=== PATIENT | female | born 1960 | race Caucasian/White ===

== ENCOUNTER 2017-11-02 18:30 | Observation (INO) | payer BC ==
[2017-11-02 19:05] LABS: Absolute Lymphocytes (CBC) 1.7 K/uL (0.7-4.9); Absolute Monocytes 0.5 K/uL (0.1-1.3); Absolute Neutrophil 5.3 K/uL (1.8-8.0); Basophils % 0.5 % (0-1.3); Eosinophils % 1.8 % (0-4.4); Hematocrit 40.5 % (36.0-45.0); Lymphocytes % 22.4 % (15.3-44.8); MCV 95.9 fL (80-100); MPV 9.1 fL (7.6-11.3); Monocytes % 6.6 % (3.3-12.3); RBC Red Blood Cell Count 4.22 M/uL (3.86-4.86)
[2017-11-02 19:09] LABS: Protime INR 0.94
[2017-11-02] MEDS ORDERED: ONDANSETRON 4 MG/2 ML VIAL ONE (19:19)
[2017-11-02] MEDS ORDERED: MORPHINE 4 MG/ML SYR ONE (19:19)
[2017-11-02 19:25] LABS: ALT/SGPT 17 U/L (12-78); AST/SGOT 15 U/L (15-37); Albumin 3.5 g/dL (3.4-5.0); Alkaline Phosphatase 98 U/L (45-117); BUN Blood Urea Nitrogen 10 mg/dL (7-18); Bicarbonate 22 mmol/L (21-32); Bilirubin Direct 0.1 mg/dL (0-0.2); Bilirubin Total 0.5 mg/dL (0.2-1.0); CKMB Creatine Kinase MB < 1.0 ng/mL (0.3-3.6); Creatine Phosphokinase 48 U/L (26-192); Glucose Level 227 mg/dL (74-106); Lipase 147 U/L (73-393); Magnesium 1.7 mg/dL (1.8-2.4); NT PRO-BNP 419 pg/mL (<125); Potassium 3.9 mmol/L (3.5-5.1); Protein, Total 7.6 g/dL (6.4-8.2); Sodium Level 138 mmol/L (136-145)
[2017-11-02] MEDS ORDERED: MAGNESIUM SULFATE 1 gm IVPB 1 GM/100 ML BAG IV ONE (20:03)
--- NOTE | 2017-11-02 20:15 | RAD REPORT ---
EXAM DESCRIPTION: CT - Angio Aorta For Dissection - 11/02/2017 7:47 pm CLINICAL HISTORY: . Chest and abd pain COMPARISON: None TECHNIQUE: Computed tomography angiography of the chest, abdomen pelvis were obtained. 100 cc Isovue 370 was administered intravenously. Coronal and sagittal reconstruction were performed. MIP 3D reconstruction was performed All CT scans are performed using dose optimization technique as appropriate and may include automated exposure control or mA/KV adjustment according to patient size. FINDINGS: An aortic dissection is not seen. An aortic aneurysm is not displayed. Mild atherosclerot ic changes involve the aorta The celiac, SMA and LAISHA are patent . Mild ground-glass opacities are present within the lungs bilaterally. A pericardial effusion is not s een. A pleural effusion is not noted. The liver,spleen, pancreas adrenals and left kidney demonstrate no significant abnormality. A 6 millimeter calcification Hounsfield unit 1087 is present within the lower right pelvis probably within the distal right ureter. There is a possible right ureterocele. Right hydronephrosis is not pr esent. The kidneys demonstrate symmetric concentration of contrast The appendix is normal. There no evidence diverticulitis. No ascites is noted. A small right inguinal hernia contains fat IMPRESSION: Negative for an aortic dissection. Mild ground-glass opacities in lungs indicative of a mild alveolitis 6 millimeter nonobstructing distal right ureteral calculus
--- NOTE | 2017-11-02 20:16 | RAD REPORT ---
EXAM DESCRIPTION: Nabeel Single View11/02/2017 7:07 pm CLINICAL HISTORY: Chest pain COMPARISON: none FINDINGS: Mild bilateral lung opacities are seen. The heart is normal size IMPRESSION: Mild bilateral lung opacities may indicate a pneumonitis
--- NOTE | 2017-11-02 20:54 | ER ---
Nurse's Notes [facility] Name: Madison Walters Age: 57 yrs Sex: Female : 1960 Arrival Date: 11/02/2017 Time: 18:32 Bed 6 Private MD: None, None Diagnosis: Chest pain on breathing;Chest pain, unspecified;Pneumonia due to other specified bacteria-pneumonitis;Tobacco abuse counseling;Tobacco use;Hypomagnesemia Presentation: 11/02 18:37 Presenting complaint: Patient states: SOB and chest pain that radiates to upper back hb that woke her from sleep at -0700 today. pain is described as tearing or ripping. Denies N/V/fever/cough. Transition of care: patient was not received from another setting of care. Onset of symptoms was November 02, 2017. Risk Assessment: Do you want to hurt yourself or someone else? Patient reports no desire to harm self or others. Care prior to arrival: None. 18:37 Method Of Arrival: Ambulatory hb 18:37 Acuity: DARA 2 hb 20:07 Initial Sepsis Screen: Does the patient meet any 2 criteria? No. Patient's initial lp1 sepsis screen is negative. Does the patient have a suspected source of infection? No. Patient's initial sepsis screen is negative. Historical: - Allergies: 18:41 Sulfa (Sulfonamide Antibiotics); hb - Home Meds: 18:41 None [Active]; hb - PMHx: 18:41 None; hb - PSHx: 18:41 Hysterectomy; hb - Immunization history:: Adult Immunizations up to date. - Social history:: Smoking status: Patient/guardian denies using tobacco. - Ebola Screening: : No symptoms or risks identified at this time. - Family history:: not pertinent. - Hospitalizations: : No recent hospitalization is reported. Screenin:45 Abuse screen: Denies threats or abuse. Denies injuries from another. Nutritional sg screening: No deficits noted. Tuberculosis screening: No symptoms or risk factors identified. Never had TB. Fall Risk None identified. Assessment: 18:45 General: Appears in no apparent distress. uncomfortable, ill, well groomed, well sg developed, well nourished, Behavior is calm, cooperative, appropriate for age. Pain: Complains of pain in chest Quality of pain is described as sharp, " ripping". Neuro: Level of Consciousness is awake, alert, obeys commands, Speech is normal, Facial symmetry appears normal. Cardiovascular: Heart tones S1 S2 present Capillary refill is sluggish in bilateral fingers Patient's skin is warm and dry. Respiratory: Airway is patent Respiratory effort is even, unlabored, Respiratory pattern is regular, symmetrical, Breath sounds are clear. GI: No signs and/or symptoms were reported involving the gastrointestinal system. : No signs and/or symptoms were reported regarding the genitourinary system. EENT: No signs and/or symptoms were reported regarding the EENT system. Derm: Skin is pink, warm \\T\\ dry. Musculoskeletal: No signs and/or symptoms reported regarding the musculoskeletal system. 19:24 General: Appears uncomfortable, Behavior is appropriate for age, restless. Pain: lp1 Complains of pain in left shoulder Pain radiates to chest Quality of pain is described as "spasm-like" Pain began gradually. Neuro: Level of Consciousness is awake, alert, obeys commands. Cardiovascular: Rhythm is sinus tachycardia. Respiratory: Reports pain with respiration Respiratory effort is even, unlabored. Derm: Skin is intact, Skin is dry, Skin is normal. Musculoskeletal: Reports pain in left shoulder. 20:06 Reassessment: Patient returned from CT, states pain med has "taken the edge off". lp1 21:30 Reassessment: Dr. Lyn at bedside. lp1 22:17 Reassessment: Patient appears in no apparent distress at this time. Patient and/or lp1 family updated on plan of care and expected duration. Pain level reassessed. Patient is alert, oriented x 3, equal unlabored respirations, skin warm/dry/pink. Patient states symptoms have improved. Vital Signs: 18:39 BP 116 / 68; Pulse 117; Resp 16; Temp 98.4; Pulse Ox 93% on R/A; hb 19:23 BP 112 / 58; Pulse 103; Resp 20; Pulse Ox 95% on R/A; lp1 20:30 BP 127 / 64; Pulse 102; Resp 24; Pulse Ox 95% on R/A; lp1 21:15 Weight 92.9 kg (M); lp1 21:30 BP 113 / 71; Pulse 96; Resp 21; Pulse Ox 97% on R/A; lp1 22:17 BP 123 / 80; Pulse 99; Resp 22; Pulse Ox 98% on R/A; lp1 ED Course: 18:32 Patient arrived in ED. mr 18:32 None, None is Private Physician. mr 18:39 Triage completed. hb 18:41 Arm band placed on left wrist. EKG completed in triage. Results shown to MD. hb 18:44 Laron Palmer MD is Attending Physician. rn 18:51 Radiology exam delayed due to lab results not completed at this time. (BUN/Creatinine). sw 18:55 Inserted saline lock: 20 gauge in right forearm, using aseptic technique. Blood ss collected. 19:05 X-ray completed. Portable x-ray completed in exam room. Patient tolerated procedure bb2 well. 19:05 Tony Miller, RN is Primary Nurse. sg 19:13 Kim Franco, SHARON is Primary Nurse. lp1 19:16 Attending Physician role handed off by Laron Palmer MD ludy 19:16 Damien Lundberg MD is Attending Physician. ludy 19:[address] via stretcher. vm2 19:44 CT completed. Patient tolerated procedure well. Patient moved back from CT. vm2 20:07 Patient has correct armband on for positive identification. Placed in gown. Bed in low lp1 position. Call light in reach. telemetry monitor on. Pulse ox on. NIBP on. 20:07 No provider procedures requiring assistance completed. Patient maintains SpO2 lp1 saturation greater than 95% on room air. 20:52 Keyshawn Garber MD is Hospitalizing Provider. ludy 21:49 Patient admitted, IV remains in place. lp1 22:38 Primary Nurse role handed off by Kim Franco RN fc Administered Medications: 19:22 Drug: morphine 4 mg Route: IVP; Site: right wrist; lp1 20:00 Follow up: Response: Pain is decreased lp1 19:22 Drug: Zofran 4 mg Route: IVP; Site: right wrist; lp1 20:00 Follow up: Response: No adverse reaction lp1 20:06 Drug: Magnesium Sulfate 1 grams Route: IVPB; Infused Over: 1 hrs; Site: right wrist; lp1 21:10 Follow up: IV Status: Completed infusion; IV Intake: 100ml lp1 20:50 CANCELLED (Duplicate Order): Lopressor 25 mg PO once ludy 21:25 Drug: levofloxacin 500 mg Volume: 100 ml; Route: IVPB; Infused Over: 60 mins; Site: lp1 right wrist; 22:26 Follow up: IV Status: Completed infusion; IV Intake: 100ml lp1 : Drug: Aspirin 162 mg Route: PO; lp1 22:03 Follow up: Response: No adverse reaction lp1 : Drug: Lovenox 1 mg/kg Route: Sub-Q; Site: right lower abdomen; lp1 22:18 Follow up: Response: No adverse reaction lp1 22:14 Drug: NS 0.9% 500 ml Route: IV; Rate: bolus; Site: right wrist; lp1 22: Follow up: IV Status: Infusion continued upon admission lp1 : Drug: NS 0.9% 1000 ml Route: IV; Rate: 125 ml/hr; Site: right wrist; lp1 22: Follow up: IV Status: Completed infusion lp1 Intake: 21:10 IV: 100ml; Total: 100ml. lp1 22: IV: 100ml; Total: 200ml. lp1 Outcome: 20:53 Decision to Hospitalize by Provider. ludy 21:49 Condition: stable lp1 21:49 Instructed on the need for admit. 22:21 Admitted to Med/surg room 202, with chart, Report called to Silvana Hampton LVN lp1 22:36 Patient left the ED. lp1 22:39 Patient left the ED. rg2 Signatures: Evelyn Lu rg2 Tony Miller RN RN sg Anderson, Corey, MD MD cha Rivera, Maria mr Angela Ugalde RN RN fc Nieto, Roman, MD MD rn Smirch, Shelby, RN RN Kim Franco RN RN 1 Sybil Vickers Heather, RN RN Lilly Rm 2 Zaida Shelley 2 Corrections: (The following items were deleted from the chart) 18:40 18:37 Presenting complaint: Patient states: SOB and chest pain that radiates to upper hb back that woke her from sleep at -0700 today. Denies N/V/fever/cough hb 18:41 18:37 Acuity: DARA 3 hb hb
--- NOTE | 2017-11-02 20:54 | EDPHYS ---
Physician Documentation [facility] Name: Madison Walters Age: 57 yrs Sex: Female : 1960 Arrival Date: 11/02/2017 Time: 18:32 Bed 6 Private MD: None, None ED Physician Damien Lundberg HPI: 11/02 18:50 This 57 yrs old Female presents to ER via Ambulatory with complaints of Chest rn Pain, Breathing Difficulty. 18:50 The patient or guardian reports chest pain that is located primarily in the substernal rn area. Onset: at 07:00. The pain radiates to the scapula on both sides, Associated signs and symptoms: Pertinent positives: shortness of breath, Pertinent negatives: abdominal pain, palpitations, syncope. The chest pain is described as tearing/ripping. Duration: The patient or guardian reports a single episode, that is still ongoing. Severity of pain: At its worst the pain was moderate in the emergency department the pain is actually worse. The patient has not experienced similar symptoms in the past. The patient has not recently seen a physician. Constant chest pain, tearing, radiates to mid scapular region, worse with time, no PMH. Hurts to lay on back.. Historical: - Allergies: 18:41 Sulfa (Sulfonamide Antibiotics); hb - Home Meds: 18:41 None [Active]; hb - PMHx: 18:41 None; hb - PSHx: 18:41 Hysterectomy; hb - Immunization history:: Adult Immunizations up to date. - Social history:: Smoking status: Patient/guardian denies using tobacco. - Ebola Screening: : No symptoms or risks identified at this time. - Family history:: not pertinent. - Hospitalizations: : No recent hospitalization is reported. ROS: 18:50 Constitutional: Negative for fever, chills, and weight loss, Eyes: Negative for injury, rn pain, redness, and discharge, Neck: Negative for injury, pain, and swelling, Cardiovascular: Negative for palpitations, and edema, Respiratory: Negative for cough, wheezing Abdomen/GI: Negative for abdominal pain, nausea, vomiting, diarrhea, and constipation, Back: Negative for injury MS/Extremity: Negative for injury and deformity, Skin: Negative for injury, rash, and discoloration, Neuro: Negative for headache, weakness, numbness, tingling, and seizure. Exam: 18:50 Constitutional: This is a well developed, well nourished patient who is awake, alert, rn appears uncomfortable Head/Face: Normocephalic, atraumatic. Eyes: Pupils equal round and reactive to light, extra-ocular motions intact. Lids and lashes normal. Conjunctiva and sclera are non-icteric and not injected. Cornea within normal limits. Periorbital areas with no swelling, redness, or edema. Neck: Trachea midline, no thyromegaly or masses palpated, and no cervical lymphadenopathy. Supple, full range of motion without nuchal rigidity, or vertebral point tenderness. No Meningismus. Cardiovascular: tachycardic, irregular, no murmur Respiratory: + mild tachypnea, no retractions, speaking 5 word sentences Abdomen/GI: Soft, non-tender, with normal bowel sounds. No distension or tympany. No guarding or rebound. No evidence of tenderness throughout. MS/ Extremity: Pulses equal, no cyanosis. Neurovascular intact. Full, normal range of motion. Equal circumference. Neuro: Awake and alert, GCS 15, oriented to person, place, time, and situation. Cranial nerves II-XII grossly intact. Motor strength 5/5 in all extremities. Sensory grossly intact. 19:30 Musculoskeletal/extremity: DVT Exam: No signs of deep vein thrombosis. no pain, no ludy swelling, no tenderness, negative Homans' sign noted on exam, no appreciated bluish discoloration, no erythema, no increased warmth. Vital Signs: 18:39 BP 116 / 68; Pulse 117; Resp 16; Temp 98.4; Pulse Ox 93% on R/A; hb 19:23 BP 112 / 58; Pulse 103; Resp 20; Pulse Ox 95% on R/A; lp1 20:30 BP 127 / 64; Pulse 102; Resp 24; Pulse Ox 95% on R/A; lp1 21:15 Weight 92.9 kg (M); lp1 21:30 BP 113 / 71; Pulse 96; Resp 21; Pulse Ox 97% on R/A; lp1 22:17 BP 123 / 80; Pulse 99; Resp 22; Pulse Ox 98% on R/A; lp1 MDM: 18:44 Patient medically screened. rn 19:32 Data reviewed: vital signs, nurses notes, lab test result(s), EKG, radiologic studies, [facility] CT scan, plain films. 11/02 18:49 Order name: Basic Metabolic Panel rn 11/02 18:49 Order name: CBC with Diff rn 11/02 18:49 Order name: Ckmb rn 11/02 18:49 Order name: CPK rn 11/02 18:49 Order name: LFT's rn 11/02 18:49 Order name: Magnesium rn 11/02 18:49 Order name: NT PRO-BNP rn 11/02 18:49 Order name: PT-INR rn 11/02 18:49 Order name: Ptt, Activated rn 11/02 18:49 Order name: Troponin (emerg Dept Use Only) rn 11/02 18:49 Order name: Lipase rn 11/02 19:09 Order name: Protime (+INR); Complete Time: 19:11 EDMS 11/02 19:09 Order name: PTT, Activated Partial Thromb; Complete Time: 19:11 EDMS 11/02 19:10 Order name: CBC with Automated Diff; Complete Time: 19:11 EDMS 11/02 18:49 Order name: XRAY Chest (1 view) rn 11/02 18:49 Order name: CT Aorta for Dissection rn 11/02 19:20 Order name: Troponin (Emerg Dept Use Only); Complete Time: 19:30 EDMS 11/02 19:25 Order name: Basic Metabolic Panel; Complete Time: 19:30 EDMS 11/02 19:25 Order name: Liver (Hepatic) Function; Complete Time: 19:30 EDMS 11/02 19:25 Order name: Creatine Phosphokinase; Complete Time: 19:30 EDMS 11/02 19:25 Order name: CKMB Creatine Kinase MB; Complete Time: 19:30 EDMS 11/02 19:25 Order name: NT PRO-BNP; Complete Time: 19:30 EDMS 11/02 19:25 Order name: Magnesium; Complete Time: 19:30 EDMS 11/02 19:25 Order name: Lipase; Complete Time: 19:30 EDMS 11/02 20:16 Order name: CT; Complete Time: 20:40 EDMS 11/02 20:17 Order name: RAD; Complete Time: 20:40 EDMS 11/02 20:45 Order name: Blood Culture Adult (2) [facility] 11/02 20:45 Order name: Urine Culture [facility] 11/02 21:04 Order name: Echo with Doppler EDMS 11/02 22:38 Order name: Urine Dipstick--Ancillary (enter results) rg2 11/02 18:49 Order name: EKG; Complete Time: 18:50 rn 11/02 18:49 Order name: Cardiac monitoring; Complete Time: 19:04 rn 11/02 18:49 Order name: EKG - Nurse/Tech; Complete Time: 19:04 rn 11/02 18:49 Order name: IV Saline Lock; Complete Time: 19:23 rn 11/02 18:49 Order name: Labs collected and sent; Complete Time: 19:23 rn 11/02 18:49 Order name: O2 Per Protocol; Complete Time: 19:04 rn 11/02 18:49 Order name: O2 Sat Monitoring; Complete Time: 19:04 rn 11/02 21:04 Order name: CONS Physician Consult EDMS Administered Medications: 19:22 Drug: morphine 4 mg Route: IVP; Site: right wrist; lp1 20:00 Follow up: Response: Pain is decreased lp1 19:22 Drug: Zofran 4 mg Route: IVP; Site: right wrist; lp1 20:00 Follow up: Response: No adverse reaction lp1 20:06 Drug: Magnesium Sulfate 1 grams Route: IVPB; Infused Over: 1 hrs; Site: right wrist; lp1 21:10 Follow up: IV Status: Completed infusion; IV Intake: 100ml lp1 20:50 CANCELLED (Duplicate Order): Lopressor 25 mg PO once ludy 21:25 Drug: levofloxacin 500 mg Volume: 100 ml; Route: IVPB; Infused Over: 60 mins; Site: lp1 right wrist; 22:26 Follow up: IV Status: Completed infusion; IV Intake: 100ml lp1 21:26 Drug: Aspirin 162 mg Route: PO; lp1 22:03 Follow up: Response: No adverse reaction lp1 21:26 Drug: Lovenox 1 mg/kg Route: Sub-Q; Site: right lower abdomen; lp1 22:18 Follow up: Response: No adverse reaction lp1 22:14 Drug: NS 0.9% 500 ml Route: IV; Rate: bolus; Site: right wrist; lp1 22:26 Follow up: IV Status: Infusion continued upon admission lp1 22:26 Drug: NS 0.9% 1000 ml Route: IV; Rate: 125 ml/hr; Site: right wrist; lp1 22:26 Follow up: IV Status: Completed infusion lp1 Disposition: 11/02/17 20:53 Hospitalization ordered by Keyshawn Garber for Observation. Preliminary diagnosis are Chest pain on breathing, Chest pain, unspecified, Pneumonia due to other specified bacteria - pneumonitis, Tobacco abuse counseling, Tobacco use, Hypomagnesemia. - Bed requested for Telemetry/MedSurg (observation). - Status is Observation. rg2 - Condition is Fair. - Problem is new. - Symptoms have improved. UTI on Admission? No Signatures: Dispatcher [employer] EDMS Evelyn Lu rg2 Damien Lundberg MD MD cha Nieto, Roman, MD MD rn Pena, Laura, RN RN lp1 Lisa Garcia RN RN Corrections: (The following items were deleted from the chart) 20:50 20:45 Lopressor 25 mg PO once ordered. ludy [place] 22:10 20:53 Hospitalization Ordered by Keyshawn Garber MD for Observation. Preliminary rg2 diagnosis is Chest pain on breathing; Chest pain, unspecified; Pneumonia due to other specified bacteria - pneumonitis; Tobacco abuse counseling; Tobacco use; Hypomagnesemia. Bed requested for Telemetry/MedSurg (observation). Status is Observation. Condition is Fair. Problem is new. Symptoms have improved. UTI on Admission? No. ludy 22:36 22:10 11/02/2017 20:53 Hospitalization Ordered by Keyshawn Garber MD for Observation. lp1 Preliminary diagnosis is Chest pain on breathing; Chest pain, unspecified; Pneumonia due to other specified bacteria - pneumonitis; Tobacco abuse counseling; Tobacco use; Hypomagnesemia. Bed requested for Telemetry/MedSurg (observation). Status is Observation. Condition is Fair. Problem is new. Symptoms have improved. UTI on Admission? No. rg2 22:39 22:36 11/02/2017 20:53 Hospitalization Ordered by Keyshawn Garber MD for Observation. rg2 Preliminary diagnosis is Chest pain on breathing; Chest pain, unspecified; Pneumonia due to other specified bacteria - pneumonitis; Tobacco abuse counseling; Tobacco use; Hypomagnesemia. Bed requested for Telemetry/MedSurg (observation). Status is Observation. Condition is Fair. Problem is new. Symptoms have improved. UTI on Admission? No. lp1
[2017-11-02] MEDS ORDERED: ASPIRIN 81 MG CHEWABLE TABLET ONE (21:03)
[2017-11-02] MEDS ORDERED: Levofloxacin500mg IV 500 MG/100 ML BAG IV ONE (21:03)
[2017-11-02] MEDS ORDERED: ENOXAPARIN 100 MG/ML SYR SQ ONE (21:21)
--- NOTE | 2017-11-02 21:58 | P.HP ---
Certification for Inpatient Patient admitted to: Observation With expected LOS: <2 Midnights Practitioner: I am a practitioner with admitting privileges, knowledge of patient current condition, hospital course, and medical plan of care. Services: Services provided to patient in accordance with Admission requirements found in Title 42 Section 412.3 of the Code of Federal Regulations Patient History Date of Service: 11/02/17 Reason for admission: chest/back pain History of Present Illness: Ms Walters is a 57-year-old woman with pretty benign past make a history, woke up today with severe chest pain, radiated to her back. She described like reaping pain associated with mild shortness breath. She denied any fever, chills or sweating episodes. Laying down in bed, exacerbate the pain, as well as rolling from one side to another. She denied any chest trauma, and she never had these kind of symptoms in the past. Lab work is mostly unremarkable, chest-x-ray showed no acute infiltrate, CT dissection is negative for dissection , however it his remarkable for bilateral alveolitis. Allergies Sulfa (Sulfonamide Antibiotics) Allergy (Verified 11/02/17 21:18) Itching/Hives/Rash Home medications list reviewed: Yes - Past Medical/Surgical History -: tobacco abuse Past Surgical History: Reviewed- Non-Contributory - Family History Family History: Reviewed- Non-Contributory - Social History Smoking Status: Light Tobacco smoker (1-9 cigarettes/day) Counseled patient to stop smoking for: less than 10 minutes Smoking therapy provided: No Patient receptive to therapy: No CD- Drugs: No Place of Residence: Home Review of Systems 10-point ROS is otherwise unremarkable Physical Examination - Physical Exam General: Alert, In no apparent distress HEENT: Atraumatic, PERRLA, Mucous membr. moist/pink, EOMI, Sclerae nonicteric Neck: Supple, 2+ carotid pulse no bruit, No LAD, Without JVD or thyroid abnormality Respiratory: Normal air movement, Crackles/rales (Scattered bilateral crackles) Cardiovascular: Regular rate/rhythm, Normal S1 S2 Gastrointestinal: Normal bowel sounds, No tenderness Musculoskeletal: No tenderness Integumentary: No rashes Neurological: Normal speech, Normal strength at 5/5 x4 extr, Normal tone, Normal affect Lymphatics: No axilla or inguinal lymphadenopathy - Studies Laboratory Data (last 24 hrs) 11/02/17 18:53: PT 11.1, INR 0.94, APTT 34.2 11/02/17 18:53: WBC 7.7, Hgb 13.9, Hct 40.5, Plt Count 178 11/02/17 18:53: Sodium 138, Potassium 3.9, BUN 10, Creatinine 0.90, Glucose 227 H, Magnesium 1.7 L, Total Bilirubin 0.5, AST 15, ALT 17, Alkaline Phosphatase 98 , Lipase 147 Assessment and Plan - Problems (Diagnosis) (1) Chest pain Current Visit: Yes Status: Acute Qualifiers: Chest pain type: other chest pain Qualified Code(s): R07.89 - Other chest pain; R07.8 - Other chest pain (2) Back pain Current Visit: Yes Status: Acute Qualifiers: Back pain location: thoracic back pain Chronicity: acute Back pain laterality: unspecified Qualified Code(s): M54.6 - Pain in thoracic spine - Plan The patient will be admitted to the hospital due to chest pain and, and back pain. CT chest is remarkable for bilateral infiltrate consistent with possible alveolitis. Differential diagnosis include the pleurisy versus muscle spasm. Consider also a acute coronary syndrome, however is less likely since the EKG shows none ST-T abnormalities and cardiac enzymes are negative. Consult Cardiology for evaluation recommendation, echo pending. Will start empiric antibiotics for Alveolitis. - Advance Directives Does patient have a Living Will: No Does patient have a Durable POA for Healthcare: No - Code Status/Comfort Care Code Status Assessed: Yes Code Status: Full Code
[2017-11-02] MEDS ORDERED: NA CHLORIDE 0.9% 1,000 ML ONE (22:11)
[2017-11-02 22:43] VITALS: BMI 32.0
[2017-11-02 22:47] LABS: Urine Blood TRACE (NEG); Urine Glucose NEGATIVE (NEG); Urine Protein NEGATIVE (NEG); Urine pH 6.5 (5.0-7.0)
[2017-11-02] MEDS ORDERED: ACETAMINOPHEN 500 MG TAB PO PRN (22:54)
[2017-11-02] MEDS ORDERED: Morphine 2 MG/2 ML SYR IV PRN (22:54)
[2017-11-02] MEDS ORDERED: ONDANSETRON 4 MG/2 ML VIAL IV PRN (22:54)
[2017-11-02] MEDS: NA CHLORIDE 0.9% 1,000 ML IV SCH (23:21)
[2017-11-02] MEDS: MORPHINE 2 MG/ML SYR IV PRN (23:56)
[2017-11-03] MEDS: ALBUTEROL 2.5 MG/3 ML NEB SOL NEB SCH ×2 (00:26→08:02)
[2017-11-03] MEDS: IPRATROPIUM BROM 0.5MG/2.5ML NEB SCH ×2 (00:27→08:02)
--- NOTE | 2017-11-03 05:33 | EKG ---
Test Date: 2017-11-02 Test Time: 18:47:27 Production Zone Leader: KANE MEASUREMENT RESULTS: Intervals: Rate: 108 IA: 148 QRSD: 98 QT: 308 QTc: 412 [place]: P: 49 IA: 148 QRS: -16 T: 74 INTERPRETIVE STATEMENTS: Sinus tachycardia Minimal voltage criteria for LVH, may be normal variant Nonspecific T wave abnormality Abnormal ECG No previous ECG available for comparison Electronically Signed On 11-03-17 05:33:13 CDT by Richard Peterson
[2017-11-03] MEDS: MORPHINE 2 MG/ML SYR IV PRN (05:34)
[2017-11-03 07:46] LABS: Potassium 4.2 mmol/L (3.5-5.1)
--- NOTE | 2017-11-03 07:58 | EKG ---
Test Date: 2017-11-03 Test Time: 07:37:09 Student Services Director: BREN MEASUREMENT RESULTS: Intervals: Rate: 83 NC: 150 QRSD: 98 QT: 344 QTc: 404 [place]: P: 41 NC: 150 QRS: -7 T: 41 INTERPRETIVE STATEMENTS: Normal sinus rhythm Minimal voltage criteria for LVH, may be normal variant Nonspecific T wave abnormality Abnormal ECG Compared to ECG 11/02/2017 18:47:27 Sinus tachycardia no longer present T-wave abnormality still present Electronically Signed On 11-03-17 07:57:31 CDT by Richard Peterson
[2017-11-03 08:15] LABS: Absolute Lymphocytes (CBC) 2.1 K/uL (0.7-4.9); Absolute Monocytes 0.4 K/uL (0.1-1.3); Absolute Neutrophil 3.3 K/uL (1.8-8.0); Basophils % 0.4 % (0-1.3); Eosinophils % 2.2 % (0-4.4); Hematocrit 36.2 % (36.0-45.0); Lymphocytes % 35.1 % (15.3-44.8); MCH 33.7 pg (27.0-35.0); MCV 96.4 fL (80-100); MPV 9.3 fL (7.6-11.3); Monocytes % 7.3 % (3.3-12.3); RBC Red Blood Cell Count 3.76 M/uL (3.86-4.86)
[2017-11-03 08:44] VITALS: O2SAT 94
[2017-11-03] MEDS ORDERED: ASPIRIN EC 81 MG TAB PO SCH (09:00)
[2017-11-03] MEDS ORDERED: Levofloxacin500mg IV 500 MG/100 ML BAG IV SCH (09:00)
[2017-11-03] MEDS: NA CHLORIDE 0.9% 1,000 ML IV SCH (09:08)
[2017-11-03 09:24] VITALS: TEMP 97.2
--- NOTE | 2017-11-03 11:32 | CON ---
Identification: A 57-year-old woman. Chief Complaint: Left shoulder pain. History Of Present Illness: The patient was sleeping. She rolled on her left shoulder and then imme diately had pain in the shoulder and arm. There was not any chest pain. She came to the hospital re cently. She has been having chills and sweating spells. She is found to have a pulmonary infiltrate . Her temperature at the highest has been 98.4. Her white blood cell count isn't elevated, but ther e are diffuse spots in her lung that look like alveolitis or pneumonitis according to the radiologist . The patient has never had diabetes, hypertension, stroke, myocardial infarction, vascular disease, blood clots, dyslipidemia. Medications: She takes no medications. Past Medical History: She is multiparous. No hospitalizations other than deliveries. Social History: She uses no tobacco. Rare alcohol. No illegal drugs. Physical Examination: General: She is alert, oriented, pleasant, 5 feet 7 feet, 204 pounds, body mass index 32. HEENT: Normal. Lungs: Clear. Heart: No friction rub. No murmur, rub, or gallop. Abdomen: Soft. Extremities: Normal distal pulses. Laboratory Data: All of her troponins are less than 0.02. Her EKG is completely normal. Impression: There is really no reason to do any further testing on her heart. I think we can do an echo and let that be the end of testing on her heart unless she develops symptoms or other findings c onsistent with ischemic heart disease, but this just does not seem to be unstable angina. I think sh e probably overstretched nerve or stretched a muscle and caused the pain. Thank you very much for your kind referral of Ms. Walters. I will follow her with you. KIAH/MODL Voice ID: [id number] Report ID: [id number]
--- NOTE | 2017-11-03 11:43 | ECHO ---
HEIGHT: 5 ft 7 in WEIGHT: 204 lb 9 oz DATE OF STUDY: 11/03/[address]: 2-DIMENSIONAL: YES M.MODE: YES DOPPLER: YES COLOR FLOW: YES TDS: NO PORTABLE: NO DEFINITY: NO BUBBLE STUDY: NO DIAGNOSIS: CHEST PAIN, SHORTNESS OF BREATH CARDIAC HISTORY: CATHERIZATION: NO SURGERY: NO PROSTHETIC VALVE: NO PACEMAKER: NO MEASUREMENTS (cm) DIASTOLIC (NORMALS) SYSTOLIC (NORMALS) IVSd 0.8 (0.6-1.2) LA Diam 3.4 (1.9-4.0) LVEF 50-55% LVIDd 5.6 (3.5-5.7) LVIDs 4.5 (2.0-3.5) %FS 20% LVPWd 0.9 (0.6-1.2) Ao Diam 2.8 (2.0-3.7) 2 DIMENSIONAL ASSESSMENT: RIGHT ATRIUM: NORMAL LEFT ATRIUM: NORMAL RIGHT VENTRICLE: NORMAL LEFT VENTRICLE: NORMAL TRICUSPID VALVE: NORMAL MITRAL VALVE: NORMAL PULMONIC VALVE: NORMAL AORTIC VALVE: MILD SCLEROSIS PERICARDIAL EFFUSION: NONE AORTIC ROOT: NORMAL LEFT VENTRICULAR WALL MOTION: NORMAL DOPPLER/COLOR FLOW: NO AORTIC STENOSIS OR AORTIC REGURGITATION. TRACE MITRAL REGURGITATION. COMMENTS: NORMAL LEFT VENTRICULAR EJECTION FRACTION. MILD AORTIC SCLEROSIS WITHOUT AORTIC STENOSIS OR REGURGITATION. TRACE MITRAL REGURGITATION. TECHNOLOGIST: JOSEFINA COLES
--- NOTE | 2017-11-03 12:57 | P.DS ---
Admission Date: 11/02/17 Discharge Date: 11/03/17 Disposition: ROUTINE DISCHARGE Discharge Condition: FAIR Reason for Admission: chest/back pain Consultations: Dr. Peterson cardiology - Problems (1) Obesity (BMI 30.0-34.9) Current Visit: Yes Status: Acute (2) Back pain Onset Date: 11/03/17 Current Visit: Yes Status: Acute Qualifiers: Back pain location: thoracic back pain Chronicity: acute Back pain laterality: unspecified Qualified Code(s): M54.6 - Pain in thoracic spine (3) Chest pain Onset Date: 11/03/17 Current Visit: Yes Status: Acute Qualifiers: Chest pain type: other chest pain Qualified Code(s): R07.89 - Other chest pain; R07.8 - Other chest pain Brief History of Present Illness: From H&P Ms Walters is a 57-year-old woman with pretty benign past make a history, woke up today with severe chest pain, radiated to her back. She described like reaping pain associated with mild shortness breath. She denied any fever, chills or sweating episodes. Laying down in bed, exacerbate the pain, as well as rolling from one side to another. She denied any chest trauma, and she never had these kind of symptoms in the past. Lab work is mostly unremarkable, chest-x-ray showed no acute infiltrate, CT dissection is negative for dissection , however it his remarkable for bilateral alveolitis. Hospital Course: Patient is a 57-year-old female who came into the hospital for what sounded like pleuritic chest pain, possible musculoskeletal pain. Patient was ruled out for acute coronary syndrome. Her cardiac troponin levels were negative. She was seen by cancellation clerk Dr. Peterson. Echocardiogram was done which showed normal ejection fraction and no wall motion abnormality. No further cardiac workup was recommended by cardiology. Patient's symptoms improved she was able to ambulate without any difficulty. No shortness of breath or chest pain. Vital signs were stable she was afebrile. Patient will be discharged with a short course of antibiotics for the possible pneumonitis alveolitis and she was encouraged to follow up with her primary care physician within a week. She was counseled on diet and exercise modification to decrease her BMI Vital Signs/Physical Exam: Temp Pulse Resp BP Pulse Ox 97.2 F 82 17 119/58 L 90 L 11/03/17 08:00 11/03/17 08:00 11/03/17 08:00 11/03/17 08:00 11/03/17 08:00 General: Alert, In no apparent distress, Oriented x3, Obese HEENT: Atraumatic, PERRLA, EOMI Neck: Supple, JVD not distended Respiratory: Clear to auscultation bilaterally, Normal air movement Cardiovascular: No edema, Normal pulses, Regular rate/rhythm, Normal S1 S2 Gastrointestinal: Normal bowel sounds, Soft and benign, Non-distended, No tenderness Musculoskeletal: No tenderness Integumentary: No rashes Neurological: Normal speech, Normal strength at 5/5 x4 extr, Normal tone, Normal affect Laboratory Data at Discharge: WBC 6.1 K/uL (4.3-10.9) D 11/03/17 07:13 Hgb 12.6 g/dL (12.0-15.0) 11/03/17 07:13 Hct 36.2 % (36.0-45.0) 11/03/17 07:13 Plt Count 166 K/uL (152-406) 11/03/17 07:13 PT 11.1 SECONDS (9.5-12.5) 11/02/17 18:53 INR 0.94 11/02/17 18:53 APTT 34.2 SECONDS (24.3-36.9) 11/02/17 18:53 Sodium 142 mmol/L (136-145) 11/03/17 07:13 Potassium 4.2 mmol/L (3.5-5.1) 11/03/17 07:13 BUN 8 mg/dL (7-18) 11/03/17 07:13 Creatinine 0.80 mg/dL (0.55-1.3) 11/03/17 07:13 Glucose 95 mg/dL (74-106) 11/03/17 07:13 Magnesium 2.1 mg/dL (1.8-2.4) 11/03/17 07:13 Total Bilirubin 0.5 mg/dL (0.2-1.0) 11/02/17 18:53 AST 15 U/L (15-37) 11/02/17 18:53 ALT 17 U/L (12-78) 11/02/17 18:53 Alkaline Phosphatase 98 U/L (45-117) 11/02/17 18:53 Troponin I < 0.02 ng/mL (0.0-0.045) 11/03/17 07:13 Lipase 147 U/L (73-393) 11/02/17 18:53 Home Medications: levoFLOXacin [Levaquin] 750 mg PO DAILY #7 tab 11/03/17 New Medications: levoFLOXacin [Levaquin] 750 mg PO DAILY #7 tab Patient Discharge Instructions: f/up w PCP in 2-3 days. f/up w Dr. Peterson cancellation clerk in 4 weeks. Return to ER for worsening condition Diet: calorie restricted Activity: Ad nancy
[2017-11-03 13:03] VITALS: BP 110/53
[2017-11-03] MEDS ORDERED: ENOXAPARIN 40 MG/0.4 ML SQ SCH (21:00)
== END 2017-11-03 14:41 | disposition home or self-care (01) ==
LOC: ER 18:30 → ERHOLD 21:00 → 2ND 22:14
PROVIDERS: ADMIT Internal Medicine; ATTEND Family Medicine
DX: R07.89 Other chest pain (principal); M54.6 Pain in thoracic spine; J84.112 Idiopathic pulmonary fibrosis; E66.9 Obesity, unspecified; Z68.32 Body mass index [BMI] 32.0-32.9, adult; E83.42 Hypomagnesemia; F17.210 Nicotine dependence, cigarettes, uncomplicated; I35.8 Other nonrheumatic aortic valve disorders; R00.0 Tachycardia, unspecified; Z88.2 Allergy status to sulfonamides
CPT/HCPCS: 36415; 71045; 71275; 74175; 80048; 80076; 81003; 82550; 82553; 83690; 83735; 83880; 84484; 85025; 85610; 85730; 87040; 87086; 87088; 93005; 93306; 94640; 94760; 96365; 96367; 96372; 96375; 99285; G0378; J1650; J2270; J2405; J3475; J7030; Q9967